=== PATIENT | female | born 1995 | race Caucasian/White ===

== ENCOUNTER 2024-10-23 19:52 | Emergency (ER) | payer MEDICAID ==
[~2024-10-23] VITALS: Ht 177.8 cm; Wt 59.0 kg
[2024-10-23 20:36] VITALS: TEMP 98.1
[2024-10-23 20:43] LABS: BASOPHILS % (AUTO) 0.6 % (0.0-2.0); EOSINOPHILS # (AUTO) 0.1 K/uL (0.0-0.7); EOSINOPHILS % (AUTO) 0.8 % (0.0-6.0); HEMATOCRIT 39 % (33-45); LYMPHOCYTES # (AUTO) 1.9 K/uL (0.8-4.8); LYMPHOCYTES % (AUTO) 23.2 % (20.0-44.0); MEAN CORPUSCULAR HEMOGLOBIN 29 PG (26.0-33.0); MEAN CORPUSCULAR HGB CONC 34 g/dl (31.0-36.0); MEAN CORPUSCULAR VOLUME 88 fL (82-100); MONOCYTES # (AUTO) 0.6 K/uL (0.1-1.30); MONOCYTES % (AUTO) 7.6 % (2.0-12.0); NEUTROPHILS # (AUTO) 5.7 K/uL (1.8-8.9); NEUTROPHILS % (AUTO) 67.8 % (43.0-81.0); PLATELET COUNT (AUTO) 181 K/uL (150-450); RED BLOOD CELL COUNT(AUTO) 4.41 MIL/uL (4.0-5.2); RED CELL DISTRIBUTION WIDTH 13.4 % (11.5-15.0); WHITE BLOOD COUNT (AUTO) 8.3 K/uL (4.3-11.0)
[2024-10-23 21:00] VITALS: BP 109/77; O2SAT 99
[2024-10-23 21:03] LABS: CALCIUM, SERUM 8.7 mg/dL (8.5-10.1); CREATININE 0.7 mg/dL (0.6-1.3); POTASSIUM 4.1 mmol/L (3.5-5.1)
== END 2024-10-23 21:38 | disposition home or self-care (01) ==
LOC: ER 19:57
DX: N92.0 Excessive and frequent menstruation with regular cycle (principal); N94.6 Dysmenorrhea, unspecified; R10.2 Pelvic and perineal pain; E03.9 Hypothyroidism, unspecified; Z60.2 Problems related to living alone
CPT/HCPCS: 36415; 76856-TC; 80048-TC; 84702-TC; 85025-TC